=== PATIENT | male | born 1955 | race Caucasian/White ===

== ENCOUNTER 2017-08-03 12:13 | Outpatient (CLI) | payer OTHER ==
--- NOTE | 2017-08-03 12:41 | XRay Report ---
ROUTINE CHEST, TWO VIEWS: HISTORY: Diminished breath sounds on the left side. The trachea, heart, mediastinal contour, lung haas and bony thorax are unremarkable. IMPRESSION: Unremarkable chest x-ray.
== END 2017-08-03 12:14 | disposition home or self-care (01) ==
LOC: XRAY 12:13
PROVIDERS: ATTEND Surgery
DX: R09.89 Other specified symptoms and signs involving the circulatory and respiratory systems (principal)
CPT/HCPCS: 71046

== ENCOUNTER 2017-08-05 09:32 | Day surgery (SDC) | payer OTHER ==
[~2017-08-05 09:32] MED LIST: ANCEF/STERILE WATER 2 GM/20 ML IV NR
[2017-08-05] MEDS ORDERED: MARCAINE 0.5% 30 ML INFILTRATI ONE (10:53)
[2017-08-05 10:55] LABS: Eosinophils # (Auto) 0.4 K/mm3 (0.0-0.4); Eosinophils % (Auto) 9.1 % (0.0-4.3); Hematocrit 46.6 % (35.5-45.6); Hemoglobin 15.7 gm/dl (11.8-15.2); Lymphocytes # (Auto) 1.5 K/mm3 (1.2-5.4); Lymphocytes % (Auto) 32.7 % (13.4-35.0); Mean Corpuscular HGB Conc 34 % (32-34); Mean Corpuscular Hemoglobin 32 pg (28-32); Mean Corpuscular Volume 95 fl (84-94); Monocytes # (Auto) 0.5 K/mm3 (0.0-0.8); Platelet Count 153 K/mm3 (140-440); Red Blood Count 4.92 M/mm3 (3.65-5.03); Red Cell Distribution Width 13.9 % (13.2-15.2)
[2017-08-05 11:08] LABS: Alanine Aminotransferase 19 units/L (7-56); Albumin 4.2 g/dL (3.9-5); BUN/Creatinine Ratio 19; Blood Urea Nitrogen 15 mg/dL (9-20); Calcium 8.5 mg/dL (8.4-10.2); Hemolysis Index 7
--- NOTE | 2017-08-05 11:20 | Anesthesia Consultation ---
Anesthesia Consult and Med Hx Date of service: 08/05/17 - Airway Anesthetic Teeth Evaluation: Caps ROM Head & Neck: Adequate Mental/Hyoid Distance: Adequate Mallampati Class: Class II Intubation Access Assessment: Probably Good - Pulmonary Exam CTA: Yes - Cardiac Exam Cardiac Exam: RRR - Pre-Operative Health Status ASA Pre-Surgery Classification: ASA2 Proposed Anesthetic Plan: General - Pulmonary Hx Smoking: Yes (OVER 20 YEARS AGO) - Cardiovascular System Hx Hypertension: Yes (3 YEARS) - Central Nervous System Hx Back Pain: Yes Hx Psychiatric Problems: No - Other Systems Hx Alcohol Use: Yes (OCCAS BEER) Hx Substance Use: No Hx Cancer: No - Additional Comments Anesthesia Medical History Comments: Informed consent obtained
[2017-08-05] MEDS ORDERED: PERCOCET 5/325 PO PRN (11:21)
[2017-08-05] MEDS ORDERED: DILAUDID IV PRN (11:21)
--- NOTE | 2017-08-05 11:21 | Anesthesia Day of Surgery ---
Anesthesia Day of Surgery - Day of Surgery Patient Examined: Yes Patient H&P Reviewed: Yes Patient is NPO: Yes Cardiac Clearance: Yes
[2017-08-05] MEDS ORDERED: ZEMURON IV ONE (11:32)
[2017-08-05] MEDS ORDERED: XYLOCAINE MPF 2% ONE (11:32)
[2017-08-05] MEDS ORDERED: DIPRIVAN 10 MG/ML IV ONE (11:32)
[2017-08-05] MEDS ORDERED: DILAUDID ONE (11:32)
[2017-08-05] MEDS ORDERED: NEOSTIGMINE ONE (11:56)
[2017-08-05] MEDS ORDERED: ROBINUL ONE ×2 (11:56→12:23)
[2017-08-05] MEDS ORDERED: ZOFRAN ONE (11:56)
[2017-08-05] MEDS ORDERED: DECADRON ONE (11:56)
[2017-08-05] MEDS ORDERED: NACL 0.9% 1000 ML 1,000 ML IV SCH (12:00)
[2017-08-05] MEDS ORDERED: PEPCID IV NR (12:00)
[2017-08-05] MEDS ORDERED: VERSED IV NR (12:00)
[2017-08-05] MEDS ORDERED: NACL 0.9% 1000 ML 1,000 ML ONE (12:11)
--- NOTE | 2017-08-05 13:05 | Discharge Summary ---
Short Stay Discharge Plan Activity: advance as tolerated, no driving until cleared by PCP Diet: regular Wound: per your surgeon's advice Follow up with: LYLA ROMANO MD [Primary Care Provider] - 7 Days
--- NOTE | 2017-08-05 13:30 | Operative Report ---
PREOPERATIVE DIAGNOSIS: Left inguinal hernia. POSTOPERATIVE DIAGNOSIS: Left inguinal hernia. SURGERY: Laparoscopic repair of left inguinal hernia via a preperitoneal approach. ANESTHESIA: General. BLOOD LOSS: Minimal. FINDINGS: The patient had a fairly good sized hernia with a width of about 1.5 to 2 cm. I was able to take a picture of that and I pulled it out leaving the defect after which it was covered with a graft. FINDINGS: As above. DESCRIPTION OF PROCEDURE: With the patient in supine position, after cleansing and draping in usual fashion, I made a small incision in the infraumbilical aspect transversely set and then I was able to reach the fascia at which point I was able to dissect it and just deep to the fascia and deep to the rectus abdominis muscles I was able to introduce the insufflator in the usual fashion with use of camera #10. This was insufflated. Then, I removed the system after which a trocar with the balloon at the end was introduced between 2 stay sutures of 0 Vicryl. The area was then insufflated with CO2 up to pressure of 15, at which point we were able to take a good panoramic view of the area. At that point, loss of adipose tissue was dissected free from the anterior abdominal wall and anterior retroperitoneum at which point I was able to look at the area, I was able to see the ilioinguinal tract. Thus, medium size left-sided graft was applied tacking it to the fascia with use of a tacker at the ilioinguinal tract and then superiorly and all around in the usual fashion anterior to the structures in the posterior aspect. We were very much satisfied with good hemostasis. I took picture after completion. Then I removed all the trocars one by one deflating the abdominal cavity and closing the fascia with use of 0 Vicryl [id number] x 2 and for the skin 4-0 Vicryl and the bandage. The patient was then transferred to the recovery room in good condition. We are going to have a scrotal support on him. JOB# [id number] MADELYN/GABRIELLE
--- NOTE | 2017-08-05 13:50 | Post Anesthesia Evaluation ---
- Post Anesthesia Evaluation Patient Participated: Yes Airway Patent: Yes Stable Respiratory Function: Yes Nausea/Vomiting: No Temp > 96.8F: Yes Pain Manageable: Yes Adequeate Hydration: Yes Anesthesia Complications: No
[2017-08-05 15:15] VITALS: BP 128/77
== END 2017-08-05 09:33 | disposition home or self-care (01) ==
LOC: OR 09:32
PROVIDERS: ATTEND Surgery
DX: K40.90 Unilateral inguinal hernia, without obstruction or gangrene, not specified as recurrent (principal); E78.00 Pure hypercholesterolemia, unspecified; I10 Essential (primary) hypertension; F17.200 Nicotine dependence, unspecified, uncomplicated
CPT/HCPCS: 36415; 49650; 80053; 85025; C1726; C1781; J0690; J1100; J1170; J2250; J2405; J2704; J2710; J7030